=== PATIENT | male | born 1985 | race American Indian/Alaskan Native ===

== ENCOUNTER 2020-07-13 15:21 | Emergency (ER) | payer SELFPAY ==
[2020-07-13 15:44] VITALS: BP 120/72
[2020-07-13 16:14] LABS: Basophils % (Auto) 0.8 % (0.0-1.8); Eosinophils # (Auto) 0.1 K/mm3 (0.0-0.4); Eosinophils % (Auto) 1.5 % (0.0-4.3); Hematocrit 41.6 % (35.5-45.6); Hemoglobin 13.1 gm/dl (11.8-15.2); Lymphocytes # (Auto) 1.6 K/mm3 (1.2-5.4); Lymphocytes % (Auto) 30.4 % (13.4-35.0); Mean Corpuscular HGB Conc 32 % (32-34); Mean Corpuscular Volume 75 fl (84-94); Monocytes # (Auto) 0.6 K/mm3 (0.0-0.8); Monocytes % (Auto) 11.8 % (0.0-7.3); Platelet Count 215 K/mm3 (140-440); Red Blood Count 5.57 M/mm3 (3.65-5.03); Red Cell Distribution Width 17.9 % (13.2-15.2)
[2020-07-13 16:29] LABS: BUN/Creatinine Ratio 10; Blood Urea Nitrogen 10 mg/dL (9-20); Calcium 8.8 mg/dL (8.4-10.2); Hemolysis Index 31
== END 2020-07-13 15:45 | disposition left against medical advice (07) ==
LOC: ED 15:21
DX: R45.851 Suicidal ideations (principal); Z53.21 Procedure and treatment not carried out due to patient leaving prior to being seen by health care provider
CPT/HCPCS: 36415; 80048; 80320; 85025; G0480

== ENCOUNTER 2020-07-25 18:54 | Emergency (ER) | payer SELFPAY ==
[2020-07-25] MEDS ORDERED: ACETAMINOPHEN 500 MG TAB PO ONE (19:56)
--- NOTE | 2020-07-25 20:53 | XRay Report ---
CHEST 2 VIEWS INDICATION / CLINICAL INFORMATION: cough. COMPARISON: None available. FINDINGS: SUPPORT DEVICES: None. HEART / MEDIASTINUM: No significant abnormality. LUNGS / PLEURA: No significant pulmonary or pleural abnormality. No pneumothorax. ADDITIONAL FINDINGS: No significant additional findings. IMPRESSION: 1. No acute findings. Signer Name: Jerel Faria MD Signed: 07/25/2020 8:48 PM Workstation Name: [id number]
--- NOTE | 2020-07-25 20:58 | Emergency Department Report ---
<ESTEFANIA ANDRESFAUSTO Santacruz - Last Filed: 07/26/20 02:44> - General Chief Complaint: Upper Respiratory Infection Stated Complaint: BEHAVIORAL HEALTH/COVID CONCERN PUI?: No Time Seen by Provider: 07/25/20 19:05 Source: patient, EMS Mode of arrival: Ambulatory Limitations: No Limitations - History of Present Illness Initial Comments: Patient is a 35-year-old male that presents emergency room with complaints of upper respiratory symptoms. Patient states that he has been having a cough and shortness of breath and fever for 2 days. Patient states his symptoms are worsening. Patient states that his respiratory symptoms are better with cocaine. Patient states that his respiratory symptoms are better with rest and worse with activity. Patient states he thinks he has COVID. Patient states he has not been tested for COVID. Patient denies loss of smell. Patient denies chest pain. Patient denies sore throat. Patient denies abdominal pain. Patient denies nausea and vomiting. Patient denies recent travel. Patient denies recent international travel. Patient denies exposure to the novel coronavirus. Patient denies diarrhea. Patient denies coming in contact with anybody with symptoms of the novel coronavirus. Patient also complains of mental health issues. Patient states that he is having audio and visual hallucinations. Patient denies homicidal and suicidal ideations. Patient states he has had these mental health issues for many weeks. Patient states he is been using cocaine to help the hallucinations. Patient states that people are out to get him. Patient states he is homeless. Patient states he is depressed. Patient denies anxiety. MD Complaint: fever, cough, rhinorrhea -: Sudden Severity: severe Consistency: constant Improves With: rest Worsens With: activity Context: sick contacts Associated Symptoms: fever, chills, headache, rhinorrhea, cough, shortness of breath. denies: sore throat, stiff neck, chest pain, abdominal pain, nausea, vomiting, diarrhea, dysuria, rash, confusion, right sweats, weight loss, epistaxis, hoarseness, ear pain - Related Data Home Medications Medication Instructions Recorded Confirmed Last Taken Benztropine [Cogentin] 1 mg PO DAILY 08/31/14 07/26/20 Unknown Allergies Allergy/AdvReac Type Severity Reaction Status Date / Time No Known Allergies Allergy Unverified 05/14/14 13:14 ED Review of Systems Constitutional: chills, fever Eyes: denies: eye pain, eye discharge, vision change ENT: denies: ear pain, throat pain Respiratory: cough, shortness of breath. denies: wheezing Cardiovascular: denies: chest pain, palpitations Endocrine: no symptoms reported Gastrointestinal: denies: abdominal pain, nausea, vomiting, diarrhea Genitourinary: denies: urgency, dysuria Musculoskeletal: denies: back pain, joint swelling, arthralgia Skin: denies: rash, lesions Neurological: denies: headache, weakness, paresthesias Psychiatric: depression, auditory hallucinations, visual hallucinations. denies: anxiety, homicidal thoughts, suicidal thoughts Hematological/Lymphatic: denies: easy bleeding, easy bruising ED Past Medical Hx - Past Medical History Previous Medical History?: Yes Hx Psychiatric Treatment: Yes (Schizophrenia) - Surgical History Past Surgical History?: No - Family History Family history: no significant - Social History Smoking Status: Current Every Day Smoker Substance Use Type: Cocaine, Marijuana - Medications Home Medications: Home Medications Medication Instructions Recorded Confirmed Last Taken Type Benztropine [Cogentin] 1 mg PO DAILY 08/31/14 07/26/20 Unknown History ED Physical Exam - General Limitations: No Limitations General appearance: alert, in no apparent distress - Head Head exam: Present: atraumatic, normocephalic - Eye Eye exam: Present: normal appearance - ENT ENT exam: Present: mucous membranes moist - Neck Neck exam: Present: normal inspection - Respiratory Respiratory exam: Present: normal lung sounds bilaterally. Absent: respiratory distress - Cardiovascular Cardiovascular Exam: Present: regular rate, normal rhythm. Absent: systolic murmur, diastolic murmur, rubs, gallop - GI/Abdominal GI/Abdominal exam: Present: soft, normal bowel sounds. Absent: distended, tenderness, guarding - Rectal Rectal exam: Present: deferred - Extremities Exam Extremities exam: Present: normal inspection - Back Exam Back exam: Present: normal inspection - Neurological Exam Neurological exam: Present: alert, oriented X3 - Psychiatric Psychiatric exam: Present: flat affect - Expanded Psychiatric Exam Expanded Focused psych exam: Present: pressured speech, delusional, paranoid, loose associations - Skin Skin exam: Present: warm, dry, intact, normal color. Absent: rash ED Course - Reevaluation(s) Reevaluation #1: Patient placed on a ER hold. 07/25/20 20:58 Reevaluation #2: Patient placed on a 1013. Patient evaluated by mental health. 07/25/20 23:40 Reevaluation #3: I discussed all results and clinical findings with patient. I discussed plan of care with patient. Patient agrees with plan of care. Patient is medically cleared. Patient will remain in the ER as an ER hold. Patient's final disposition will come from our psychiatry team. 07/26/20 02:44 ED Medical Decision Making - Lab Data Result diagrams: 07/25/20 21:16 07/25/20 21:16 - Radiology Data Radiology results: image reviewed interpreted by me: Chest x-ray: No pneumonia, no pneumothorax, no foreign body, no osseous findin gs, no acute findings CHEST 2 VIEWS INDICATION / CLINICAL INFORMATION: cough. COMPARISON: None available. FINDINGS: SUPPORT DEVICES: None. HEART / MEDIASTINUM: No significant abnormality. LUNGS / PLEURA: No significant pulmonary or pleural abnormality. No pneumothorax. ADDITIONAL FINDINGS: No significant additional findings. IMPRESSION: 1. No acute findings. - Medical Decision Making Patient is a 35-year-old male that presents emergency room with complaints of fever, cough, upper respiratory symptoms. Patient states he believes he has COV ID. Patient also complained of hallucinations and acute psychosis. Patient placed on a ER hold and then later placed on a 1013. Patient had a full medical evaluation. Patient's labs are essentially unremarkable and patient is medically cleared. Patient will have a COVID screen done in the morning. Patient's chest x-ray is negative. Patient is medically cleared. Patient will remain in the ER until the patient's final disposition comes from our psychiatry mental health team. - Differential Diagnosis uri, covid, fever, mh, acute psychosis, cocaine abuse ED Disposition Clinical Impression: Cocaine abuse, Schizophrenia Disposition: DC-01 TO HOME OR SELFCARE Is pt being admited?: No Does the pt Need Aspirin: No Condition: Stable Instructions: COVID-19, Brief Psychotic Disorder (ED) Additional Instructions: Please follow-up with outpatient resources for COVID-19 testing. The health department, [facility] intermediate care, and multiple urgent cares are performin g COVID-19 testing. Your COVID-19 test today was not ran since you were not admitted to the hospital. Outpatient [facility] Resources: [facility]) [address] [id number] / [phone] Tuesday thru Tuesday - 8am - 5pm [facility] Address: [place] [address] Tuesday thru Tuesday- 7am-2pm [facility] Address: [address] [place] [address] Tuesday thru Tuesday: 8:30AM-5PM CRISIS RESOURCES DC Crisis Line: Suicide Prevention Line: Crisis Text Line: Text START to [phone] Emergency: 911 Time of Disposition: 02:46 <JAYA FERNANDEZ - Last Filed: 07/26/20 13:00> ED Review of Systems ROS: Stated complaint: BEHAVIORAL HEALTH/COVID CONCERN Other details as noted in HPI ED Course Vital Signs 07/25/20 07/25/20 07/26/20 19:49 19:52 02:10 Temperature 100.7 F H 98.0 F Pulse Rate 101 H 89 Respiratory 16 16 18 Rate Blood Pressure 115/76 121/74 [Left] O2 Sat by Pulse 97 97 Oximetry 07/26/20 07:30 Temperature 97.0 F L Pulse Rate 68 Respiratory 18 Rate Blood Pressure 118/67 [Left] O2 Sat by Pulse 100 Oximetry - Reevaluation(s) Reevaluation #4: 07/26/20 12:58 Mental health specialist saw the patient this morning and the patient states he is no longer hallucinating or hearing voices and that he feels better. Their plan is as follows: PLAN d/c 1013 No scripts given, the patient states he has all of his meds at home Sitter: Defer to primary Medical: Per primary Disposition: Do not recommend acute inpatient treatment. The patient may discharge home once medically clear. He understands that if SI/HI or any feelin gs of endangerment he is to seek immediate assistance, including the crisis hotline, 911, ER. The straight cutter machine to give the patient outpatient resources, cognitive behavioral therapy and safety plan. The patient to follow up in 7 to 14 days upon discharge with outpatient psych or primary Will follow sign off. Thank you for this consult ED Medical Decision Making - Lab Data Result diagrams: 07/25/20 21:16 07/25/20 21:16 Critical care attestation.: If time is entered above; I have spent that time in minutes in the direct care of this critically ill patient, excluding procedure time. ED Disposition Does the pt Need Aspirin: No
[2020-07-25 21:40] LABS: Basophils # (Auto) 0.1 K/mm3 (0.0-0.1); Basophils % (Auto) 0.8 % (0.0-1.8); Eosinophils # (Auto) 0.1 K/mm3 (0.0-0.4); Eosinophils % (Auto) 1.4 % (0.0-4.3); Hematocrit 36.5 % (35.5-45.6); Hemoglobin 11.9 gm/dl (11.8-15.2); Lymphocytes # (Auto) 1.2 K/mm3 (1.2-5.4); Lymphocytes % (Auto) 12.1 % (13.4-35.0); Mean Corpuscular HGB Conc 33 % (32-34); Mean Corpuscular Volume 72 fl (84-94); Monocytes # (Auto) 0.9 K/mm3 (0.0-0.8); Monocytes % (Auto) 9.3 % (0.0-7.3); Platelet Count 262 K/mm3 (140-440); Red Blood Count 5.04 M/mm3 (3.65-5.03)
[2020-07-25 21:52] LABS: Alanine Aminotransferase 20 units/L (7-56); Albumin 3.9 g/dL (3.9-5); BUN/Creatinine Ratio 15; Blood Urea Nitrogen 15 mg/dL (9-20); Calcium 8.6 mg/dL (8.4-10.2); Hemolysis Index 24
[2020-07-26 01:54] LABS: Bilirubin,Urine NEG (Negative); Blood,Urine NEG (Negative); Color,Urine Colorless (Yellow); Protein,Urine <15 mg/dL mg/dL (Negative); RBC,Urine < 1.0 /HPF (0.0-6.0); Urobilinogen,Urine < 2.0 mg/dL (<2.0)
[2020-07-26 02:02] LABS: Amphetamine Screen,Urine PRESUMPTIVE NEGATIVE; Benzodiazepines Screen,Urine PRESUMPTIVE NEGATIVE; Cannabinoid Screen,Urine PRESUMPTIVE NEGATIVE; Cocaine Screen,Urine PRESUMPTIVE NEGATIVE; Methadone Screen,Urine PRESUMPTIVE NEGATIVE; Opiate Screen,Urine PRESUMPTIVE NEGATIVE
[2020-07-26 05:31] LABS: Bilirubin,Urine NEG (Negative); Blood,Urine NEG (Negative); Color,Urine Colorless (Yellow); Protein,Urine <15 mg/dL mg/dL (Negative); Urobilinogen,Urine < 2.0 mg/dL (<2.0)
[2020-07-26 05:36] LABS: Amphetamine Screen,Urine PRESUMPTIVE NEGATIVE; Benzodiazepines Screen,Urine PRESUMPTIVE NEGATIVE; Cannabinoid Screen,Urine PRESUMPTIVE NEGATIVE; Cocaine Screen,Urine PRESUMPTIVE NEGATIVE; Methadone Screen,Urine PRESUMPTIVE NEGATIVE; Opiate Screen,Urine PRESUMPTIVE NEGATIVE
--- NOTE | 2020-07-26 10:28 | Consultation ---
History of Present Illness - Reason for Consult Consult date: 07/26/20 Reason for consult: A/V hallucinantions - History of Present Psychiatric Illness The patient's medical record was reviewed and the patient's progress was discussed with the nursing staff. The nurse caring for the patient states he has been calm, cooperative and resting quietly. She states he has not exhibited any psychosis or SI/HI behavior. Maik Nunez is a 35y/o male patient who presented to the hospital for sob and cough. The patient told me he came to have a COVID test and a check up. The patient states at that time he was hearing voices. He states "I'm good now. I'm not hallucinating any more." He says he has a history of "schizophrenia." The patient says he's on "benzotropine and something else but I can't remember." He says "I take them everyday though." He says he sees "Dr Works in [employer]." He denies any illicit drug use other than "weed." When asking the patient about te lling them upon admission that he uses cocaine to help with hallucinations, he laughed and said "I don't do nothing but weed. I did cocaine like 12 years ago." The patient drug screen was negative. He denies SI/HI or any past attempt of suicide. He also denies ever being admitted for psychiatric problems. PAST PSYCHIATRIC HISTORY: Diagnoses: Schizophrenia Suicide attempts or Self-harm behavior: Denies Prior psychiatric hospitalizations: Denies Substance Abuse history: "weed" Previous psychiatric medications tried: Benzotropiine Outpatient treatment: Yes PAST MEDICAL HISTORY: Family Psychiatric History: None reported or documented SOCIAL HISTORY Marital Status: Living Arrangements: Alone Employment Status: Unemployed Access to guns/weapons: Denies Education: 12th History of Abuse: none reported Legal History: Denies REVIEW OF SYSTEMS Constitutional: Negative for weight loss ENT: Negative for stridor Respiratory: Negative for cough or hemoptysis All other systems reviewed and are negative MENTAL STATUS EXAMINATION General Appearance: Dressed appropriately Behavior: Calm and cooperative Mood: "good" Affect and affective range: Congruent with stated mood Thought Process: goal directed Speech: normal tone and pace Suicidal Ideation: Denies Homicidal Ideation: Denies Hallucinations: Denies Delusions: None elicited Insight and Judgment: Limited Memory/Cognition: Limited Attention: Normal Orientation: Alert, oriented x 3 Assessment Schizophrenia PLAN d/c 1013 No scripts given, the patient states he has all of his meds at home Sitter: Defer to primary Medical: Per primary Disposition: Do not recommend acute inpatient treatment. The patient may discharge home once medically clear. He understands that if SI/HI or any feelings of endangerment he is to seek immediate assistance, including the crisis hotline, 911, ER. The mail handler assistant to give the patient outpatient resources, cognitive behavioral therapy and safety plan. The patient to follow up in 7 to 14 days upon discharge with outpatient psych or primary Will follow sign off. Thank you for this consult Medications and Allergies Allergies Allergy/AdvReac Type Severity Reaction Status Date / Time No Known Allergies Allergy Unverified 05/14/14 13:14 Home Medications Medication Instructions Recorded Confirmed Last Taken Type Benztropine [Cogentin] 1 mg PO DAILY 08/31/14 08/31/14 Unknown History Mental Status Exam - Vital signs Last Vital Signs Temp 98.0 F 07/26/20 02:10 Pulse 89 07/26/20 02:10 Resp 18 07/26/20 02:10 BP 121/74 07/26/20 02:10 Pulse Ox 97 07/26/20 02:10 Results Result Diagrams: 07/25/20 21:16 07/25/20 21:16 Abnormal lab results 07/25/20 07/25/20 07/25/20 Range/Units 21:16 21:16 21:16 RBC 5.04 H (3.65-5.03) M/mm3 MCV 72 L (84-94) fl MCH 24 L (28-32) pg RDW 17.0 H (13.2-15.2) % Lymph % (Auto) 12.1 L (13.4-35.0) % [place] % (Auto) 9.3 H (0.0-7.3) % [place] # (Auto) 0.9 H (0.0-0.8) K/mm3 Seg Neutrophils % 76.4 H (40.0-70.0) % Glucose 109 H (75-100) mg/dL Ur Specific [place] (1.003-1.030) Salicylates < 0.3 L (2.8-20.0) mg/dL Acetaminophen (10.0-30.0) ug/mL 07/25/20 07/25/20 Range/Units 21:16 Unknown RBC (3.65-5.03) M/mm3 MCV (84-94) fl MCH (28-32) pg RDW (13.2-15.2) % Lymph % (Auto) (13.4-35.0) % [place] % (Auto) (0.0-7.3) % [place] # (Auto) (0.0-0.8) K/mm3 Seg Neutrophils % (40.0-70.0) % Glucose (75-100) mg/dL Ur Specific [place] 1.001 L (1.003-1.030) Salicylates (2.8-20.0) mg/dL Acetaminophen 9.1 L (10.0-30.0) ug/mL All other labs normal.
[2020-07-26 12:04] VITALS: BP 118/67
== END 2020-07-26 13:16 | disposition home or self-care (01) ==
LOC: ED 18:54 → EEVIPCON 18:54 → ED 07-26 13:16
DX: F20.9 Schizophrenia, unspecified (principal); F14.10 Cocaine abuse, uncomplicated; F17.200 Nicotine dependence, unspecified, uncomplicated; F12.10 Cannabis abuse, uncomplicated; Z79.899 Other long term (current) drug therapy
CPT/HCPCS: 36415; 71046; 80053; 80307; 81001; 85025; 99285; U0003; 80320; G0480

== ENCOUNTER 2022-04-06 10:34 | Emergency (ER) | payer SELFPAY ==
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
[2022-04-06 15:02] VITALS: BP 118/71
== END 2022-04-06 15:00 | disposition home or self-care (01) ==
LOC: ED 10:34
DX: L03.114 Cellulitis of left upper limb (principal); F20.9 Schizophrenia, unspecified; F17.290 Nicotine dependence, other tobacco product, uncomplicated
CPT/HCPCS: 99283